=== PATIENT | female | born 2000 | race Caucasian/White ===

== ENCOUNTER 2021-02-21 20:52 | Emergency (ER) | payer OTHER ==
[~2021-02-21 20:52] MED LIST: IBUPROFEN600 MG PO
[2021-02-21] MEDS ORDERED: IBUPROFEN600 MG PO (21:54)
== END 2021-02-21 22:30 | disposition home or self-care (01) ==
LOC: ER1 20:52
DX: S82.61XA Displaced fracture of lateral malleolus of right fibula, initial encounter for closed fracture (principal); W10.9XXA Fall (on) (from) unspecified stairs and steps, initial encounter; Y92.009 Unspecified place in unspecified non-institutional (private) residence as the place of occurrence of the external cause
CPT/HCPCS: 29515; 73610; 99283

== ENCOUNTER 2021-08-04 17:55 | Emergency (ER) | payer OTHER | END 2021-08-04 19:45 | disposition left against medical advice (07) | LOC: ER1 17:55 | DX: Z53.21 Procedure and treatment not carried out due to patient leaving prior to being seen by health care provider (principal) ==